=== PATIENT | female | born 1965 | race Asian ===

== ENCOUNTER 2016-04-14 15:16 | Emergency (ER) | payer OTHER ==
[2016-04-14 15:34] VITALS: BP 161/102; PULSE 68; RESP 16; TEMP 98.1; O2SAT 97
--- NOTE | 2016-04-14 16:56 | CT ---
CT Scan of Head (Without Contrast) Clinical Indications: Fell on ice. Positive loss of consciousness. Technique: Axial CT images were acquired from foramen magnum through vertex, without intravenous con trast. Soft tissue and bone windows were reviewed on the computer workstation. Images were reconstr ucted down to 1.25 mm images. Dose reduction techniques were utilized. Findings: No mass lesions are seen, and there is no evidence of intracranial hemorrhage or acute inf arct. The ventricles and subarachnoid spaces are normal in size for this age group. Bone windows re veal no sign of fracture. The visualized paranasal sinuses and mastoid air cells are free of fluid. Impression: Normal CT of the head. Findings are discussed with Ainsley Booker.
--- NOTE | 2016-04-14 16:57 | CT ---
CT Scan of the Cervical Spine (Without Contrast) Clinical Indications: Fell on ice. Technique: Thinly collimated multidetector helical CT imaging of the cervical spine was reviewed in multiple planes. Dose reduction techniques were utilized. Findings: No fractures are found. The spinal canal is adequate in size. No evidence of herniated d isk or hematoma. Impression: Normal. Findings are discussed with Ainsley Booker.
--- NOTE | 2016-04-14 17:04 | UCPHY ---
H & P Time Seen by Provider: 04/14/16 16:03 Patient Type: Established HPI/ROS: 51-year-old female presents complaining of slipped down to stairs on ice hitting the back of her head now with throbbing head pain and some midline neck pain. No loss of bowel or bladder control no numbness or tingling in arms or legs. She is unsure whether she had a loss of consciousness but she definitely felt dazed afterwards. Review of systems General no fever no chills no weakness HEENT no eye pain no eye discharge. No eye redness, no sore throat Respiratory no cough, no shortness of breath Cardiac no chest pain, no peripheral edema GI no abdominal pain, no diarrhea, no constipation, no nausea, no vomiting no flank pain, no hematuria, no dysuria Musculoskeletal positive myalgias, no joint pain Heme no easy bruising, no easy bleeding Endo no polyuria, no polydipsia Skin no rashes, no pruritus Neuro no syncope, no dizziness, positive headaches Psych is no suicidal ideation, no homicidal ideation Past Medical/Surgical History: Hypertension Social History: Denies alcohol or drug use Smoking Status: Former smoker Physical Exam: 56-year-old female alert and oriented in moderate distress secondary to posterior scalp and neck pain Normocephalic Posterior occipital scalp tenderness Neck supple no JVD positive posterior midline tenderness, no ecchymosis no step- off no swelling Lungs clear to auscultation bilaterally Heart regular rate and rhythm without murmur rub or gallop Abdomen nondistended normoactive bowel sounds soft nontender Back no CVA tenderness, no step-offs, no spinal tenderness Extremities no cyanosis clubbing or edema Neuro alert and oriented, no focal deficits Constitutional: Initial Vital Signs Temperature (C) 36.7 C 04/14/16 15:29 Heart Rate 68 04/14/16 15:29 Respiratory Rate 16 04/14/16 15:29 Blood Pressure 161/102 H 04/14/16 15:29 O2 Sat (%) 97 04/14/16 15:29 O2 Delivery Mode Room Air Allergies/Adverse Reactions: No Known Allergies Allergy (Verified 07/14/15 16:55) Home Medications: Medication Instructions Recorded Hydrocodone/Acetaminophen [[place] 1 - 2 tab PO Q6H PRN #20 tab 04/14/16 5/325 (*)] Lisinopril 04/14/16 Ondansetron Odt [Zofran Odt 4 mg 4 mg PO Q4 PRN #10 tab 04/14/16 (*)] VITAMIN D 04/14/16 Medical Decision Making - Diagnostics Imaging: CT head and neck negative ED Course/Re-evaluation: Patient seen and evaluated for fall slipping down stairs now with posterior scalp pain and neck pain CT scans negative Impression Head injury, scalp contusion Cervical neck strain Plan Muscle relaxant Pain medication Follow up with primary care physician Departure - Departure Disposition: Home, Routine, Self-Care Clinical Impression: Scalp contusion, Concussion, Cervical strain Condition: Good Instructions: Concussion (ED), Scalp Contusion in Adults (ED), Cervical Strain (ED) Referrals: ENA SMITH MD [Primary Care Provider] - As per Instructions Stand Alone Forms: Work Excuse Prescriptions: Hydrocodone/Acetaminophen [[place] 5/325 (*)] 1 - 2 tab PO Q6H PRN #20 tab PRN Reason: Pain, Moderate Ondansetron Odt [Zofran Odt 4 mg (*)] 4 mg PO Q4 PRN #10 tab PRN Reason: Nausea/Vomiting, Use 1st - PQRS PQRS Measurement: na
== END 2016-04-14 17:16 | disposition home or self-care (01) ==
LOC: CED 15:16
DX: S00.03XA Contusion of scalp, initial encounter (principal); S06.0X9A Concussion with loss of consciousness of unspecified duration, initial encounter; S16.1XXA Strain of muscle, fascia and tendon at neck level, initial encounter; Z87.891 Personal history of nicotine dependence; W00.1XXA Fall from stairs and steps due to ice and snow, initial encounter
CPT/HCPCS: 70450-PO; 72125-PO; G0463-PO